=== PATIENT | male | born 1995 | race Caucasian/White ===

== ENCOUNTER 2018-11-04 22:41 | Emergency (ER) | payer OTHER ==
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
[2018-11-05 00:28] VITALS: BP 130/65
--- NOTE | 2018-11-05 06:11 | Diagnostic Imaging Report ---
JUSTYN DOE [facility] [address] [facility] [address] [address] Report Submission Date: Nov 04, 2018 11:45:20 PM CORPORATE RISK ANALYST Patient Study Name: DURGA GARZA Date: Nov 04, 2018 11:08:33 PM CORPORATE RISK ANALYST Modality Type: DX Gender: M Description: CHEST : 97 Institution: [facility] Physician: JUSTYN DOE Two views chest Clinical history: Possible inhalational are Findings: The heart size is normal. Pulmonary vasculature is normal. No pleural effusion, pneumothorax or alveolar consolidation. Impression: 1. Negative Electronically signed on Nov 04, 2018 11:45:20 PM CORPORATE RISK ANALYST by: Julien GOLD
== END 2018-11-05 00:25 | disposition home or self-care (01) ==
LOC: ED 22:41
DX: T59.811A Toxic effect of smoke, accidental (unintentional), initial encounter (principal); J70.5 Respiratory conditions due to smoke inhalation; Y92.9 Unspecified place or not applicable
CPT/HCPCS: 71046; 99283; 99284

== ENCOUNTER 2018-11-27 10:08 | Outpatient (CLI) | payer OTHER ==
--- NOTE | 2018-11-27 12:59 | Diagnostic Imaging Report ---
ALICE LANIER [facility] [address] [facility] [address] [place] [address]. [id number] Report Submission Date: Nov 27, 2018 11:06:05 AM PAYROLL CONSULTANT Patient Study Name: DURGA GARZA Date: Nov 27, 2018 10:19:29 AM PAYROLL CONSULTANT Modality Type: DX Gender: M Description: ABDOMEN : 89 Institution: [facility] Physician: ALCIE LANIER Examination: Abdomen History: Flank pain yesterday r/o kidney stones (Hx) Findings: 3 views obtained of the abdomen. No abnormal dilation of the large or small bowel. Air and stool throughout the large bowel. No suspicious calcification projecting over the renal fossa or the lower pelvic region. Osseous structures are appropriate for age. Impression: Moderate large bowel stool. No obstruction. No suspicious calcifications by plain film sensitivity. Electronically signed on Nov 27, 2018 11:06:05 AM PAYROLL CONSULTANT by: Richardson GOLD
== END 2018-11-27 10:15 ==
LOC: RAD 10:08
PROVIDERS: ATTEND Nurse Practitioner Family
DX: R10.9 Unspecified abdominal pain (principal)
CPT/HCPCS: 74019; 87491; 87591